=== PATIENT | male | born 1965 | race African-American/Black ===

== ENCOUNTER 2020-04-12 03:35 | Inpatient (IN) | payer MEDICAID ==
[~2020-04-12] VITALS: Ht 177.8 cm; Wt 62.3 kg
[~2020-04-12 03:35] MED LIST: FOLI-43 PO; GLIP5TAB12 MT; KEPP250 PO; KEPP500 PO; LAM25 PO; LEVE1000 MT; NICO-681 TD; THIA100T72 PO
[2020-04-12] MEDS ORDERED: SODIUM CHLORIDE 0.9% 1,000 ML IV ONE (04:00)
[2020-04-12] MEDS ORDERED: LEVETIRACETAM 500MG PREMIX 100 ML IV ONE ×2 (04:00→21:00)
[2020-04-12 04:48] LABS: BASOPHILS % 0.9 % (0.0-2.0); EOSINOPHILS % 1.1 % (0.0-5.0); HEMATOCRIT. 39.8 % (42.0-52.0); HEMOGLOBIN. 13.9 g/dL (14.0-18.0); LYMPHOCYTES % 34.4 % (20.0-50.0); MEAN CORPUSCULAR HEMOGLOBIN 34.9 pg (28.0-32.0); MEAN CORPUSCULAR VOLUME 100.3 fL (80.0-94.0); MEAN PLATELET VOLUME 9.5 fl (7.4-10.4); NEUTROPHILS % 56.6 % (40.0-76.0); PLATELET 176 x1000/uL (130-400); RED BLOOD CELL COUNT 3.97 mill/uL (4.7-6.1); RED CELL DISTRIBUTION WIDTH 14.7 % (11.6-14.6)
[2020-04-12 04:56] LABS: CHLORIDE 103 mEq/L (98-107)
[2020-04-12 05:00] LABS: ETHANOL BLOOD 86 mg/dL
[2020-04-12] MEDS ORDERED: CEFTRIAXONE 1 G PREMIX 50 ML IV ONE (05:30)
[2020-04-12] MEDS ORDERED: AZITHROMYCIN 500 MG in DEXT 5% WATER 250 ML IV ONE (05:30)
[2020-04-12 08:39] LABS: CLARITY URINE CLEAR (CLEAR); COLOR URINE YELLOW (YELLOW); KETONES URINE NEGATIVE (NEGATIVE); LEUKOCYTE ESTERASE URINE NEGATIVE (NEGATIVE); NITRITE URINE NEGATIVE (NEGATIVE); OCCULT BLOOD URINE NEGATIVE (NEGATIVE); PH URINE 6.5 (4.5-8.0); PROTEIN URINE NEGATIVE (NEGATIVE); SPECIFIC GRAVITY URINE 1.015 (1.005-1.030); UROBILINOGEN URINE 0.2 E.U./dL (0.2-1.0)
[2020-04-12 08:52] LABS: *AMPHETAMINES SCREEN URINE NEGATIVE (NEGATIVE); *BARBITURATES SCREEN URINE NEGATIVE (NEGATIVE); *BENZODIAZEPINES SCREEN URINE NEGATIVE (NEGATIVE); *COCAINE SCREEN URINE NEGATIVE (NEGATIVE); METHADONE URINE SCREEN NEGATIVE (NEGATIVE)
[2020-04-12 08:53] LABS: CANNABINOID URINE SCREEN PRESUMTIVE POSITIVE (NEGATIVE); OPIATES URINE SCREEN NEGATIVE (NEGATIVE); PHENCYCLIDINE URINE SCREEN NEGATIVE (NEGATIVE)
[2020-04-12] MEDS ORDERED: NA PHOS,M-B/NA PHOS,DI-BA ENEMA 118ML PR PRN (10:00)
[2020-04-12] MEDS ORDERED: ONDANSETRON HCL 4MG/2ML INJ IV PRN (10:00)
[2020-04-12] MEDS ORDERED: DIPHENHYDRAMINE 50MG/ML VIAL IV PRN (10:00)
[2020-04-12] MEDS ORDERED: MAGNESIUM/ALUMINUM HYDROXIDE/SIMETHICONE 30ML UDC PO PRN (10:00)
[2020-04-12] MEDS ORDERED: DOCUSATE SODIUM 100MG CAPSULE PO PRN (10:00)
[2020-04-12] MEDS ORDERED: LORAZEPAM 2MG/ML CPJ IV PRN (10:00)
[2020-04-12] MEDS ORDERED: HYDROCODONE/ACETAMINOPHEN 5/325MG TABLET PO PRN (10:00)
[2020-04-12] MEDS ORDERED: CLONIDINE 0.1MG TABLET PO PRN (10:00)
[2020-04-12] MEDS ORDERED: IPRATROPIUM/ALBUTEROL 0.5-3(2.5)MG/3ML NEB NEB PRN (10:00)
[2020-04-12] MEDS ORDERED: MORPHINE SULFATE 2 MG/ML CPJ (NOT FOR IM USE) IV PRN (10:00)
[2020-04-12] MEDS ORDERED: GUAIFENESIN 200MG/10ML SUGAR FREE UDC PO PRN (10:00)
[2020-04-12] MEDS ORDERED: ACETAMINOPHEN 325MG TABLET PO PRN (10:00)
[2020-04-12 10:59] LABS: HEPATITIS B SURFACE ANTIGEN NEGATIVE
[2020-04-12] MEDS: SODIUM CHLORIDE 0.45% 1,000 ML IV SCH (11:26)
[2020-04-12 11:28] LABS: HEPATITIS A AB IGM NEGATIVE (NEGATIVE)
[2020-04-12] MEDS ORDERED: POTASSIUM CHLORIDE 20MEQ TABLET SR PO NR (12:30)
[2020-04-12] MEDS: ENOXAPARIN 40MG/0.4ML SYR SUBCUT SCH (14:20)
[2020-04-12] MEDS: AMLODIPINE 5MG TABLET PO SCH (21:16)
[2020-04-12] MEDS: LEVETIRACETAM 500MG TABLET PO SCH (21:16)
[2020-04-12 23:54] LABS: CHLORIDE 96 mEq/L (98-107)
[2020-04-13] VITALS (7 sets, daily range): BP systolic 122–142; BP diastolic 80–99
[2020-04-13] MEDS: SODIUM CHLORIDE 0.45% 1,000 ML IV SCH (03:13)
[2020-04-13] MEDS ORDERED: AZITHROMYCIN 500 MG in DEXT 5% WATER 250 ML IV SCH (08:00)
[2020-04-13] MEDS: LEVETIRACETAM 500MG TABLET PO SCH ×2 (08:50→20:03)
[2020-04-13] MEDS: ASPIRIN 81MG EC TABLET PO SCH (08:50)
[2020-04-13] MEDS: AMLODIPINE 5MG TABLET PO SCH ×2 (08:55→20:03)
[2020-04-13] MEDS: ENOXAPARIN 40MG/0.4ML SYR SUBCUT SCH (08:56)
[2020-04-13] MEDS: AZITHROMYCIN 500 MG in DEXT 5% WATER 250 ML IV SCH (09:32)
[2020-04-13 09:52] LABS: BASOPHILS % 0.2 % (0.0-2.0); EOSINOPHILS % 1.7 % (0.0-5.0); HEMOGLOBIN. 14.7 g/dL (14.0-18.0); LYMPHOCYTES % 26.7 % (20.0-50.0); MEAN CORPUSCULAR HEMOGLOBIN 34.9 pg (28.0-32.0); MEAN CORPUSCULAR VOLUME 101.9 fL (80.0-94.0); MEAN PLATELET VOLUME 9.8 fl (7.4-10.4); MONOCYTES % 5.6 % (2.0-8.0); NEUTROPHILS % 65.8 % (40.0-76.0); PLATELET 151 x1000/uL (130-400); RED BLOOD CELL COUNT 4.22 mill/uL (4.7-6.1); RED CELL DISTRIBUTION WIDTH 15.1 % (11.6-14.6)
[2020-04-13 10:47] LABS: CHLORIDE 94 mEq/L (98-107)
[2020-04-13 11:00] LABS: T4 FREE 0.94 ng/dL (0.76-1.46)
[2020-04-13 11:01] LABS: LDL CHOLESTEROL 65 mg/dL (5-100)
[2020-04-13 11:02] LABS: HDL CHOLESTEROL 114 mg/dL (40-59)
[2020-04-13] MEDS ORDERED: POTASSIUM CHLORIDE 20MEQ TABLET SR PO NR (11:15)
[2020-04-13] MEDS ORDERED: LORAZEPAM 2MG/ML CPJ IV PRN ×2 (11:45)
[2020-04-13] MEDS ORDERED: ALBUTEROL 6.7GM HFA INHALER ORI SCH (12:00)
[2020-04-13] MEDS ORDERED: ALBUTEROL 6.7GM HFA INHALER ORI PRN (12:00)
[2020-04-13 12:25] LABS: CREATINE KINASE 101 IU/L (39-308)
[2020-04-13] MEDS ORDERED: DEXTROSE 50% WATER 50ML SYRINGE IV PRN (13:15)
[2020-04-13] MEDS ORDERED: POTASSIUM CHLORIDE 20MEQ TABLET SR PO SCH ×2 (13:15→13:30)
[2020-04-13] MEDS ORDERED: MAGNESIUM 2 G PREMIX 50 ML IV SCH (15:00)
[2020-04-13] MEDS: FOLIC ACID/VITAMIN B COMP W-C TABLET PO SCH (15:29)
[2020-04-13] MEDS: MULTIVITAMINS,THER W-MINERALS TABLET PO SCH (15:29)
[2020-04-13] MEDS: CHLORDIAZEPOXIDE 10MG CAPSULE PO SCH (15:29)
[2020-04-13] MEDS: DEXT 5%/0.9% NACL KCL 20MEQ/L 1,000 ML IV SCH (15:31)
[2020-04-13] MEDS: THIAMINE HCL 100MG TABLET PO SCH (15:32)
[2020-04-13] MEDS: BLOOD SUGAR DIAGNOSTIC STRIP TEST SCH ×2 (17:40→20:03)
[2020-04-13] MEDS: INSULIN LISPRO 100 UNITS/ML SUBCUT SCH ×2 (18:05→20:13)
[2020-04-14] VITALS: BP 111/62
[2020-04-14] MEDS: CHLORDIAZEPOXIDE 10MG CAPSULE PO SCH ×2 (00:01→09:11)
[2020-04-14 05:59] LABS: BASOPHILS % 0.9 % (0.0-2.0); EOSINOPHILS % 2.4 % (0.0-5.0); HEMATOCRIT. 35.1 % (42.0-52.0); HEMOGLOBIN. 12.3 g/dL (14.0-18.0); LYMPHOCYTES % 39.2 % (20.0-50.0); MEAN CORPUSCULAR HEMOGLOBIN 34.8 pg (28.0-32.0); MEAN CORPUSCULAR VOLUME 99.7 fL (80.0-94.0); MEAN PLATELET VOLUME 9.7 fl (7.4-10.4); MONOCYTES % 6.2 % (2.0-8.0); NEUTROPHILS % 51.3 % (40.0-76.0); PLATELET 119 x1000/uL (130-400); RED BLOOD CELL COUNT 3.52 mill/uL (4.7-6.1); RED CELL DISTRIBUTION WIDTH 14.5 % (11.6-14.6)
[2020-04-14 06:30] LABS: CHLORIDE 101 mEq/L (98-107)
[2020-04-14] MEDS: BLOOD SUGAR DIAGNOSTIC STRIP TEST SCH ×2 (06:40→12:00)
[2020-04-14] MEDS: INSULIN LISPRO 100 UNITS/ML SUBCUT SCH ×2 (06:54→12:00)
[2020-04-14] MEDS: DEXT 5%/0.9% NACL KCL 20MEQ/L 1,000 ML IV SCH (07:03)
[2020-04-14 07:07] LABS: PLATELET ESTIMATE SLIGHTLY DECREASED
[2020-04-14 08:00] VITALS: BP 127/94
[2020-04-14] MEDS: AZITHROMYCIN 500 MG in DEXT 5% WATER 250 ML IV SCH (09:10)
[2020-04-14] MEDS: LEVETIRACETAM 500MG TABLET PO SCH (09:11)
[2020-04-14] MEDS: FOLIC ACID/VITAMIN B COMP W-C TABLET PO SCH (09:11)
[2020-04-14] MEDS: THIAMINE HCL 100MG TABLET PO SCH (09:11)
[2020-04-14] MEDS: ASPIRIN 81MG EC TABLET PO SCH (09:11)
[2020-04-14] MEDS: ENOXAPARIN 40MG/0.4ML SYR SUBCUT SCH (09:11)
[2020-04-14] MEDS: AMLODIPINE 5MG TABLET PO SCH (09:14)
[2020-04-14] MEDS: MULTIVITAMINS,THER W-MINERALS TABLET PO SCH (09:14)
[2020-04-14] MEDS ORDERED: POTASSIUM CHLORIDE 20MEQ TABLET SR PO NR (11:00)
[2020-04-14 12:00] VITALS: BP 118/67
[2020-04-14] MEDS ORDERED: MAGNESIUM 2 G PREMIX 50 ML IV ONE (12:00)
[2020-04-14] MEDS ORDERED: LEVE500T19 MT (14:28)
[2020-04-14 14:31] VITALS: BP 166/94
== END 2020-04-14 15:00 | disposition home or self-care (01) | DRG 53 ==
LOC: ER 03:47 → ENRESERV 21:45 → 7WST 23:29 → MERGE 23:29 → 8WST 04-13 21:12
PROVIDERS: ADMIT Internal Medicine; ATTEND Internal Medicine
DX: G40.409 Other generalized epilepsy and epileptic syndromes, not intractable, without status epilepticus (principal); R74.0 Nonspecific elevation of levels of transaminase and lactic acid dehydrogenase [LDH]; I10 Essential (primary) hypertension; E11.9 Type 2 diabetes mellitus without complications; E78.5 Hyperlipidemia, unspecified; E86.0 Dehydration; E87.2 Acidosis; F10.10 Alcohol abuse, uncomplicated; Y90.4 Blood alcohol level of 80-99 mg/100 ml; E83.42 Hypomagnesemia; E86.1 Hypovolemia; E87.1 Hypo-osmolality and hyponatremia; E87.6 Hypokalemia; D64.9 Anemia, unspecified; R17 Unspecified jaundice; Z79.84 Long term (current) use of oral hypoglycemic drugs; Z79.899 Other long term (current) drug therapy; Z72.0 Tobacco use; Z91.19 Patient's noncompliance with other medical treatment and regimen; Z91.14 Patient's other noncompliance with medication regimen; Z91.041 Radiographic dye allergy status; Z20.828 Contact with and (suspected) exposure to other viral communicable diseases
CPT/HCPCS: 36415; 71045; 80048; 80053; 80061; 80305; 80320; 81003; 82550; 82962; 83036; 83605; 83735; 83880; 84439; 84443; 84484; 85025; 86705; 86709; 86803; 87340; 87635; 93005; 99285; J0456; J0696; J1650; J1815; J1953; J3475; J7030; J7060; G0480

== ENCOUNTER 2020-06-26 07:22 | Emergency (ER) | payer MEDICAID ==
[~2020-06-26] VITALS: Ht 172.7 cm; Wt 73.0 kg
[~2020-06-26 07:22] MED LIST changes: -KEPP250 PO; -LEVE1000 MT
[2020-06-26] MEDS ORDERED: LEVETIRACETAM 500MG PREMIX 100 ML IV ONE (08:00)
[2020-06-26 08:38] LABS: HEMATOCRIT. 34.8 % (42.0-52.0); HEMOGLOBIN. 12.2 g/dL (14.0-18.0); MEAN CORPUSCULAR HEMOGLOBIN 37.3 pg (28.0-32.0); MEAN CORPUSCULAR VOLUME 106.3 fL (80.0-94.0); MEAN PLATELET VOLUME 8.9 fl (7.4-10.4); PLATELET 187 x1000/uL (130-400); RED BLOOD CELL COUNT 3.28 mill/uL (4.7-6.1); RED CELL DISTRIBUTION WIDTH 17.5 % (11.6-14.6)
[2020-06-26 08:46] LABS: CLARITY URINE CLEAR (CLEAR); COLOR URINE YELLOW (YELLOW); KETONES URINE NEGATIVE (NEGATIVE); LEUKOCYTE ESTERASE URINE NEGATIVE (NEGATIVE); NITRITE URINE NEGATIVE (NEGATIVE); OCCULT BLOOD URINE TRACE (NEGATIVE); PH URINE 6.5 (4.5-8.0); PROTEIN URINE NEGATIVE (NEGATIVE); SPECIFIC GRAVITY URINE 1.007 (1.005-1.030); UROBILINOGEN URINE 0.2 E.U./dL (0.2-1.0)
[2020-06-26 08:49] LABS: ETHANOL BLOOD < 10 mg/dL
[2020-06-26] MEDS ORDERED: FUROSEMIDE 20MG/2ML VIAL IVP ONE (09:00)
[2020-06-26] MEDS ORDERED: SODIUM CHLORIDE 0.9% 1,000 ML IV ONE (09:00)
[2020-06-26 09:10] LABS: CHLORIDE 103 mEq/L (98-107)
[2020-06-26 09:24] LABS: *AMPHETAMINES SCREEN URINE NEGATIVE (NEGATIVE); *BARBITURATES SCREEN URINE NEGATIVE (NEGATIVE); *BENZODIAZEPINES SCREEN URINE NEGATIVE (NEGATIVE); *COCAINE SCREEN URINE NEGATIVE (NEGATIVE); METHADONE URINE SCREEN NEGATIVE (NEGATIVE); OPIATES URINE SCREEN NEGATIVE (NEGATIVE)
[2020-06-26 09:25] LABS: CANNABINOID URINE SCREEN NEGATIVE (NEGATIVE); PHENCYCLIDINE URINE SCREEN NEGATIVE (NEGATIVE)
[2020-06-26 09:27] LABS: PLATELET ESTIMATE NORMAL
[2020-06-26 11:01] LABS: BG BASE EXCESS 1.5 mmol/L (-2.0-2.0); BG CARBOXYHEMOGLOBIN 1.6 % (0.5-1.5); BG DEOXYHEMOGLOBIN 5.4 % (0.0-5.0); BG FRACTION INSPIRED OXYGEN 36; BG HCO3 ACT 25.6 mmol/L (22.0-26.0); BG METHEMOGLOBIN 0.3 % (0.0-1.5); BG OXYGEN SATURATION 94.5 % (92.0-98.5); BG OXYHEMOGLOBIN 92.7 % (94.0-97.0); BG PCO2 38.5 mmHg (35.0-45.0); BG PO2 78.1 mmHg (75.0-100.0); BG SAMPLE SITE RIGHT BRACHIAL; BG TOTAL HEMOGLOBIN 12.6 g/dL (12.0-18.0); BG VENT MODE NASAL CANNULA
[2020-06-26 11:45] VITALS: BP 165/92
== END 2020-06-26 11:45 | disposition home or self-care (01) ==
LOC: ER 07:22
DX: G40.909 Epilepsy, unspecified, not intractable, without status epilepticus (principal); F10.139 Alcohol abuse with withdrawal, unspecified; Y90.0 Blood alcohol level of less than 20 mg/100 ml; R79.89 Other specified abnormal findings of blood chemistry; I10 Essential (primary) hypertension
CPT/HCPCS: 36415; 36600; 70450; 71045; 80053; 80305; 80320; 81003; 82375; 82805; 83880; 84484; 85025; 93005; 96365; 96375; 99285; J1940; J1953; J7030; A4315; G0480

== ENCOUNTER 2020-07-31 06:51 | Emergency (ER) | payer MEDICAID ==
[~2020-07-31] VITALS: Ht 175.3 cm; Wt 72.0 kg
[2020-07-31] MEDS ORDERED: LEVETIRACETAM 1000MG PREMIX 100 ML IV ONE (07:45)
[2020-07-31] MEDS ORDERED: SODIUM CHLORIDE 0.9% 1,000 ML IV ONE (07:45)
[2020-07-31] MEDS ORDERED: MIDAZOLAM HCL 2 MG/2 ML VIAL IM ONE (08:00)
[2020-07-31 11:04] LABS: BASOPHILS % 1.2 % (0.0-2.0); EOSINOPHILS % 0.1 % (0.0-5.0); HEMOGLOBIN. 12.9 g/dL (14.0-18.0); LYMPHOCYTES % 20.9 % (20.0-50.0); MEAN CORPUSCULAR HEMOGLOBIN 31.4 pg (28.0-32.0); MEAN CORPUSCULAR VOLUME 92.8 fL (80.0-94.0); NEUTROPHILS % 72.8 % (40.0-76.0); PLATELET 271 x1000/uL (130-400)
[2020-07-31 11:29] LABS: CHLORIDE 105 mEq/L (98-107)
[2020-07-31 11:44] LABS: CARBAMAZEPINE < 0.5 ug/mL (4-12); PHENOBARBITAL < 2.1 ug/mL (15.0-40.0); VALPROIC ACID < 3.0 ug/mL (50-100)
[2020-07-31 11:55] VITALS: BP 125/60
== END 2020-07-31 13:43 | disposition home or self-care (01) ==
LOC: ER 06:51
DX: G40.909 Epilepsy, unspecified, not intractable, without status epilepticus (principal); I10 Essential (primary) hypertension
CPT/HCPCS: 36415; 70450; 71045; 80053; 80156; 80165; 80184; 80185; 82962; 85025; 93005; 96365; 96372; 99285; J1953; J2250; J7030